=== PATIENT | male | born 1955 | race Caucasian/White ===

== ENCOUNTER 2020-10-15 08:07 | Outpatient (REF) | payer BC, SELFPAY | END 2020-10-15 08:08 | disposition home or self-care (01) | LOC: HO.BBR 08:07 | PROVIDERS: PCP Pediatrics; Visit Provider Urology | DX: D75.1 Secondary polycythemia (principal) | CPT/HCPCS: 36415; 85018; 99195 ==

== ENCOUNTER 2021-01-14 08:03 | Outpatient (REF) | payer BC, SELFPAY | END 2021-01-14 08:04 | disposition home or self-care (01) | LOC: HO.BBR 08:03 | PROVIDERS: PCP Pediatrics; Visit Provider Urology | DX: D75.1 Secondary polycythemia (principal) | CPT/HCPCS: 85014; 85018; 99195 ==